=== PATIENT | male | born 1980 | race Asian ===

== ENCOUNTER 2020-11-22 20:08 | Emergency (ER) | payer BC ==
[~2020-11-22] VITALS: Ht 177.8 cm; Wt 84.4 kg
[2020-11-22 20:19] VITALS: Ht 177.8 cm; Wt 84.4 kg
[2020-11-22] MEDS ORDERED: AUGMENTIN 875-1 EACH PO (20:36)
[2020-11-22 20:48] VITALS: BP 130/87
== END 2020-11-22 20:48 | disposition home or self-care (01) ==
LOC: ED 20:08
DX: S60.511A Abrasion of right hand, initial encounter (principal); W54.0XXA Bitten by dog, initial encounter; Y93.89 Activity, other specified; Y92.89 Other specified places as the place of occurrence of the external cause; Y99.8 Other external cause status
CPT/HCPCS: 90715